=== PATIENT | male | born 1945 | race Caucasian/White ===

== ENCOUNTER 2021-08-22 18:12 | Emergency (ER) | payer OTHER ==
[~2021-08-22 18:12] MED LIST: ASPIRIN EC81 MG PO; ATORVASTATIN CA40 MG PO; NITROSTAT0.4 MG SL; OMEPRAZOLE40 MG PO; QUINAPRIL HCL20 MG PO; VERAPAMIL ER240 MG PO; XANAX0.5 MG PO
== END 2021-08-22 18:50 | disposition home or self-care (01) ==
LOC: ER1 18:12
DX: U07.1 COVID-19 (principal); E78.5 Hyperlipidemia, unspecified
CPT/HCPCS: 99283

== ENCOUNTER → 2021-08-24 | Outpatient (CLI) | payer OTHER | LOC: EROP 09:05 | DX: U07.1 COVID-19 (principal); Z23 Encounter for immunization; I25.10 Atherosclerotic heart disease of native coronary artery without angina pectoris; I10 Essential (primary) hypertension | CPT/HCPCS: M0247; Q0247 ==